=== PATIENT | male | born 1970 | race Caucasian/White ===

== ENCOUNTER 2018-03-27 07:25 | Emergency (ER) | payer OTHER ==
--- NOTE | 2018-03-27 07:50 | EDPHY ---
H & P Time Seen by Provider: 03/27/18 07:48 HPI/ROS: CHIEF COMPLAINT: Sore throat HISTORY OF PRESENT ILLNESS: Started getting symptoms on Tuesday of last week. Now has progressed to severe right-sided sore throat with difficulty swallowing and a muffled voice. No trouble breathing. No stridor or drooling. Started on amoxicillin yesterday with a negative strep test. Symptoms today moderate. Associated some right ear irritation. REVIEW OF SYSTEMS: Eye: no change in vision ENT: HPI Cardiac: no chest pain or syncope Pulmonary: no cough or SOB Abdomen: no vomiting, diarrhea, abdominal pain PAST MEDICAL HISTORY: Negative Social history: Here with his General Appearance: Alert and conversant, cooperative. Eyes: No scleral icterus. ENT, Mouth: Patient has right-sided peritonsillar swelling with uvular shift to the left. He does not have trismus. No dental abnormality or gum swelling. Normal tympanic membranes bilaterally. Respiratory: No stridor or drooling, speaks in full sentences. Normal range of motion of the neck. Emergency Department course/MDM: Presents with acute peritonsillar abscess. ENT consultation. 810: Discussed with Keely Nieto requests IV Decadron and Unasyn followed by office for drainage this morning. Does not appear to have epiglottitis or retropharyngeal abscess. Smoking Status: Never smoked Constitutional: Initial Vital Signs Temperature (C) 37.4 C 03/27/18 07:32 Heart Rate 81 03/27/18 07:32 Respiratory Rate 18 03/27/18 07:32 Blood Pressure 111/75 03/27/18 07:32 O2 Sat (%) 96 03/27/18 07:32 O2 Delivery Mode Room Air Allergies/Adverse Reactions: No Known Allergies Allergy (Unverified 03/27/18 07:31) Home Medications: Medication Instructions Recorded Amoxicillin Trihydrate [Amoxil 250 250 mg PO Q8 03/27/18 mg CAP (*)] Medical Decision Making - Data Points Medications Given: Discontinued Medications Dexamethasone (Decadron Injection) 10 mg IVP EDNOW ONE Stop: 03/27/18 08:13 Last Admin: 03/27/18 08:42 Dose: Not Given Dexamethasone Sodium Phosphate (Dexamethasone) 10 mg IVP EDNOW ONE Stop: 03/27/18 08:31 Last Admin: 03/27/18 08:38 Dose: 10 mg Sodium Chloride (Ns) 1,000 mls @ 0 mls/hr IV EDNOW ONE; Wide Open PRN Reason: Protocol Stop: 03/27/18 08:13 Last Admin: 03/27/18 08:26 Dose: 1,000 mls Ampicillin Sodium/Sulbactam (Sodium 3 gm/ Sodium Chloride) 100 mls @ 200 mls/ hr IV EDNOW ONE PRN Reason: Protocol Stop: 03/27/18 08:41 Last Admin: 03/27/18 08:41 Dose: 100 mls Departure - Departure Disposition: Home, Routine, Self-Care Clinical Impression: Peritonsillar abscess Condition: Good Instructions: Peritonsillar Abscess (ED) Referrals: Abhijit Gonzalez MD [Primary Care Provider] - As per Instructions Keely Nieto PA [Physician Cargo Agent] - As per Instructions (Go to ENT office now for evaluation of your peritonsillar abscess.)
[2018-03-27] MEDS ORDERED: NS 1,000 ML IV ONE (08:12)
[2018-03-27] MEDS ORDERED: AMPICILLIN/SULBACTAM 3 GM in NS 100 ML IV ONE (08:12)
[2018-03-27] MEDS ORDERED: DEXAMETHASONE 10 MG/ML VIAL IVP ONE (08:12)
[2018-03-27] MEDS ORDERED: DEXAMETHASONE 20 MG/5 ML MDV IVP ONE (08:30)
[2018-03-27 09:22] VITALS: BP 122/66
== END 2018-03-27 09:21 | disposition home or self-care (01) ==
DX: J36 Peritonsillar abscess (principal)
CPT/HCPCS: 96374; J0295; J1100